=== PATIENT | male | born 2000 | race Two or more races ===

== ENCOUNTER 2019-01-26 11:07 | Emergency (ER) | payer OTHER ==
[~2019-01-26] VITALS: Ht 172.7 cm; Wt 104.3 kg
[2019-01-26 11:21] VITALS: BP 150/89
[2019-01-26] MEDS ORDERED: cefTRIAXone SOD 1,000 MG VL IM ONE (12:15)
[2019-01-26] MEDS ORDERED: KETOROLAC TROMETH 60MG/2ML VIAL IM ONE (12:15)
== END 2019-01-26 12:46 | disposition home or self-care (01) ==
LOC: ER 11:07
DX: J32.9 Chronic sinusitis, unspecified (principal); K02.9 Dental caries, unspecified
CPT/HCPCS: 96372; 99283; J0696; J1885